=== PATIENT | female | born 1970 | race Caucasian/White ===

== ENCOUNTER → 2016-08-18 | Outpatient (CLI) | payer OTHER ==
--- NOTE | 2016-08-18 09:14 | CT ---
CT Pelvis, Bilateral Hips, and Bilateral Femurs Without Contrast With Multiplanar Reconstructions History: Left hip osteoarthritis with pain. M25.552. [facility] preop study. Comparison: Left hip x-ray February 2016. Technique: Noncontrast axial computed tomographic images of the pelvis and bilateral femurs with mult iplanar reconstructions. CT dose reduction techniques utilized. Findings: Severe osteoarthritis of the left hip with severe superior lateral joint space narrowing, s ubchondral sclerosis, osteophytes and cystic changes involving the acetabula, as well as the superior lateral femoral head region. Moderate osteoarthritis of the right hip with mild joint space narrowin g, acetabular sclerosis, and slight bone remodeling. Moderate bilateral facet arthropathy at L4-L5 and L5-S1. Sclerotic changes bilateral sacroiliac joint s, right worse than left. No evidence of sacral fractures. No destructive osseous lesions of the pelv ic bones. Sclerotic changes with osteophytes and cystic erosions also involving the symphysis pubis. No significant degenerative changes of the knees on the axial images, although there is lateral martinez lar tilt with medial subluxation of bilateral patellar apices. Minimal free fluid in the pelvis with calcified phleboliths in the pelvis. No significant pelvic or i nguinal adenopathy. Limited due to lack of contrast. Uterus is grossly unremarkable. Impression: 1. Severe osteoarthritis left hip. 2. Moderate osteoarthritis right hip. 3. Bilateral abnormal patellar tracking.
== END ==
LOC: FIMAGING 07:51
PROVIDERS: ATTEND Orthopaedic Surgery
DX: Z01.818 Encounter for other preprocedural examination (principal); M16.0 Bilateral primary osteoarthritis of hip; M22.91 Unspecified disorder of patella, right knee; M22.92 Unspecified disorder of patella, left knee

== ENCOUNTER 2016-10-25 06:01 | Inpatient (IN) | payer OTHER ==
[2016-10-05 12:36] LABS: % IMMATURE GRANULYOCYTES 0.4 % (0.0-1.1); ABSOLUTE IMMATURE GRANULOCYTES 0.02 10^3/uL (0.00-0.10); ADD DIFF? NO; ADD MORPH? NO; ADD SCAN? NO; ATYPICAL LYMPHOCYTE FLAG 0 (0-99); FRAGMENT RBC FLAG 0 (0-99); HEMATOCRIT 38.6 % (38.0-47.0); HEMOGLOBIN 13.2 g/dL (12.6-16.3); LEFT SHIFT FLG 0 (0-99); LIPEMIA HEMOLYSIS FLAG 90 (0-99); MEAN CELL HEMOGLOBIN 31.4 pg (27.9-34.1); MEAN CELL HEMOGLOBIN CONCENTR. 34.2 g/dL (32.4-36.7); MEAN CELL VOLUME 91.9 fL (81.5-99.8); MEAN PLATELET VOLUME 9.9 fL (8.7-11.7); PLATELET CLUMPS FLAG 0 (0-99); PLATELET COUNT 237 10^3/uL (150-400); RED CELL DISTRIBUTION WIDTH 12.4 % (11.5-15.2)
[2016-10-25] MEDS ORDERED: LIDOCAINE 1% 5 ML SDV ID PRN (06:10)
[2016-10-25] MEDS ORDERED: LR 1,000 ML IV ONE (06:10)
[2016-10-25] MEDS ORDERED: LIDOCAINE 1% 2 ML INJ ONE (06:20)
[2016-10-25] MEDS ORDERED: CITRATE DEXTROSE SOLN 500 ML BAG ONE (06:39)
[2016-10-25] MEDS ORDERED: ceFAZolin 1 GM/5 ML SYR ONE (06:39)
[2016-10-25] MEDS ORDERED: MIDAZOLAM 2 MG/2 ML VIAL ONE (06:56)
[2016-10-25] MEDS ORDERED: diphenhydrAMINE 25 MG CAP PO PRN (07:01)
[2016-10-25] MEDS ORDERED: POLYETHYLENE GLYCOL 3350 17 GM PKT PO PRN (07:01)
[2016-10-25] MEDS ORDERED: BISACODYL 10 MG SUPP PR PRN (07:01)
[2016-10-25] MEDS ORDERED: LACTULOSE 20 GM/30 ML UDCUP PO PRN (07:01)
[2016-10-25] MEDS ORDERED: TEMAZEPAM 15 MG CAP PO PRN (07:01)
[2016-10-25] MEDS ORDERED: DIAZEPAM 5 MG TAB PO PRN (07:01)
[2016-10-25] MEDS ORDERED: PHARMACY PAIN CONSULT 1 EA MISC PRN (07:01)
[2016-10-25] MEDS ORDERED: ONDANSETRON DISINTEGRATING 4 MG TAB PO PRN (07:01)
[2016-10-25] MEDS ORDERED: DIPHENOXYLATE/ATROPINE LOMOTIL 1 TAB PO PRN (07:01)
[2016-10-25] MEDS ORDERED: CYCLOBENZAPRINE 10 MG TAB PO PRN (07:01)
[2016-10-25] MEDS ORDERED: ONDANSETRON 4 MG/2 ML VIAL IVP PRN (07:01)
[2016-10-25] MEDS ORDERED: METOCLOPRAMIDE 10 MG/2 ML VIAL IVP PRN (07:01)
[2016-10-25] MEDS ORDERED: oxyCODONE IR 5 MG TAB PO PRN (07:01)
[2016-10-25] MEDS ORDERED: MAGNESIUM HYDROXIDE 30 ML UDCUP PO PRN (07:01)
[2016-10-25] MEDS ORDERED: PROMETHAZINE HCL 25 MG SUPPR PR PRN (07:01)
[2016-10-25] MEDS ORDERED: fentaNYL 100 MCG/2 ML INJ ONE (07:08)
[2016-10-25] MEDS ORDERED: PROPOFOL/EMULSION 500 MG/50 ML BOTTLE IV ONE (07:08)
[2016-10-25] MEDS ORDERED: LR 1,000 ML IV SCH (07:30)
[2016-10-25] MEDS ORDERED: ROPI/epiNEPH/KETOROLAC/morphINE JOINT COCKTAIL IU ONE (08:00)
[2016-10-25] MEDS ORDERED: CHLORHEXIDINE GLUC HIBICLENS 118 ML BTL TP ONE (08:00)
[2016-10-25] MEDS ORDERED: ACETAMINOPHEN 325 MG TAB PO ONE (08:00)
[2016-10-25] MEDS ORDERED: CEFAZOLIN 2 GM/DEXTR 100 ML IV ONE (08:00)
[2016-10-25] MEDS ORDERED: FAMOTIDINE 20 MG TAB PO ONE (08:00)
[2016-10-25] MEDS ORDERED: PHENYLEPHRINE HCL 100 MCG/ML SYR ONE (08:10)
[2016-10-25] MEDS ORDERED: PROPOFOL 200 MG/20 ML VIAL ONE (08:23)
[2016-10-25] MEDS ORDERED: ONDANSETRON 4 MG/2 ML VIAL ONE ×2 (09:02→09:36)
[2016-10-25] MEDS: MULTIVITAMINS 1 EACH TAB PO SCH (10:33)
[2016-10-25] MEDS: SENNOSIDES/DOCUSATE SODIUM TAB PO SCH ×2 (10:34→21:05)
[2016-10-25] MEDS: ACETAMINOPHEN 325 MG TAB PO SCH ×3 (13:24→23:15)
[2016-10-25] MEDS: ceFAZolin 2 GM/DEXTROSE 100 ML IV SCH ×2 (14:43→23:15)
[2016-10-25] MEDS: FAMOTIDINE 20 MG TAB PO SCH (21:05)
[2016-10-25] MEDS: ASPIRIN 325 MG TAB PO SCH (21:05)
[2016-10-26 05:13] LABS: HEMOGLOBIN 9.7 g/dL (12.6-16.3)
[2016-10-26] MEDS: ACETAMINOPHEN 325 MG TAB PO SCH ×2 (05:59→12:21)
--- NOTE | 2016-10-26 08:07 | PDIAF ---
- Diagnosis Diagnosis: left hip djd Code Status: Full Code - Medication Management Discharge Medications: Medications to Continue on Transfer Multivitamins [Multivitamin (*)] 1 each PO DAILY 09/29/16 [Last Taken 10/16/16] Aspirin [Aspirin 325 mg (*)] 325 mg PO DAILY #0 tab 10/26/16 [Last Taken Unknown ] Diazepam [Valium 5 MG (*)] 5 mg PO Q6HRS PRN #40 tab 10/26/16 [Last Taken Unknown] oxyCODONE IR [Oxycodone Ir (*)] 5 - 10 mg PO Q3HRS PRN #80 tab 10/26/16 [Last Taken Unknown] Discharge Medications: Refer to the Discharge Home Medication list for PRN reason. - Orders Services needed: Physical Therapy Diet Recommendation: no restrictions on diet Diet Texture: Regular Texture Diet Activity/Weight Bearing Restrictions: wbat. anterior hip precautions. daily dressing changes. no soaking. may shower without bandage. f/u at two weeks. seek attn for increasing pain, redness, or other focal complaint - Follow Up Care Current Providers and Referrals: Penny Cooney MD [Primary Care Provider] -
[2016-10-26] MEDS: SENNOSIDES/DOCUSATE SODIUM TAB PO SCH (08:41)
[2016-10-26] MEDS: MULTIVITAMINS 1 EACH TAB PO SCH (08:41)
[2016-10-26] MEDS: ASPIRIN 325 MG TAB PO SCH (08:41)
[2016-10-26] MEDS: FAMOTIDINE 20 MG TAB PO SCH (08:41)
[2016-10-26 08:59] VITALS: BP 99/65; RESP 15; TEMP 99.1
[2016-10-26 12:20] VITALS: PULSE 86; O2SAT 94
--- NOTE | 2016-10-28 14:14 | GDS ---
[f rep st] DISCHARGE SUMMARY ADMITTING DIAGNOSIS: Left hip degenerative joint disease. DISCHARGE DIAGNOSIS: Left hip degenerative joint disease. PROCEDURE PERFORMED: Left total hip arthroplasty. HISTORY OF PRESENT ILLNESS: The patient is a 46-year-old woman who has end-stage arthritis to her l eft hip. Clinical and radiographic features are consistent with this. She had failed all attempts at conservative management. I therefore recommended total hip replacement. She understood the risk s, benefits, alternatives, and wished to proceed. Written consent was signed and placed in patient' s chart. HOSPITAL COURSE: The patient was admitted to the hospital floor after uncomplicated total hip arthr oplasty. She tolerated the procedure well. Postoperatively, she had no significant complications. At the time of discharge, she was tolerating an oral diet. Her pain was well controlled on oral me dicines. She was voiding and stooling without difficulty. Dressing was clean, dry, and intact. Sh e had no calf swelling or tenderness. Incision was clean, dry, and intact. X-rays were stable with anatomic alignment and no fracture. DISCHARGE ACTIVITY: She is weightbearing as tolerated. Anterior hip precautions. Daily dressing c hanges. No soaking or immersion. May shower without the bandage. LUPILLO hose x2 weeks. DISCHARGE MEDICATIONS: Oxycodone 5 mg 1-2 every 6 hours p.r.n. pain, aspirin 325 mg p.o. daily for 6 weeks. Follow up in 2 weeks. /[id number]/MODL
--- NOTE | 2016-10-28 14:40 | GOP ---
[f rep st] OPERATIVE REPORT DATE OF OPERATION: 10/25/2016 SURGEON: Dylon Comer MD DIGITAL LEARNING PLATFORMS MANAGER: Nicolas Montanez, GEAR CUTTING MACHINE SET UP OPERATOR, SPECIALTY FOOD PRODUCTS SUPERVISOR, neurosurgical physician assistant, who was a medical necessity for the entir ety of the case. PREOPERATIVE DIAGNOSIS: Left hip degenerative joint disease. POSTOPERATIVE DIAGNOSIS: Left hip degenerative joint disease. PROCEDURE PERFORMED: Left total hip arthroplasty. FINDINGS: SPECIMENS: To pathology: The femoral head. INDICATIONS: The patient is a 46-year-old woman who has end-stage arthritis to her left hip. Clini roz and radiographic features are consistent with this. She has failed all attempts at conservative management. I have, therefore, recommended total hip replacement. She understood the risks, benef its, alternatives, and wished to proceed. Written consent was signed and placed in the patient's ch art. DESCRIPTION OF PROCEDURE: The patient was identified in the preanesthesia area. The left hip clear ly demarcated as the operative site with indelible marker. She was given 2 g of Ancef intravenously en route to the operative suite. In the OR, general endotracheal anesthesia was administered after a spinal block after she was positioned on the operative table in the supine position. All bony pr ominences were well padded. An appropriate time-out procedure was carried out. The pelvis and both lower extremities were sterilely prepped and draped in the usual fashion. Attention was first turn ed to the right hip and lower extremity. A 2 cm incision was made over the ASIS, and [address] aced into the pelvis. The MAKOplasty pelvis reference array was affixed in the usual fashion. Attention was then turned to the left hip. An anterior approach was made. This was carried sharply through the skin and subcutaneous tissue to the fascia overlying the tensor fascia michele. This was opened in the origin of its fibers. The tensor was swept laterally. The underlying vascular struct ures were ligated, , and cauterized. The rectus elevated off the anterior capsule, and a b dimitri Hohmann placed over the medial aspect of the neck and superior aspect of the neck. A T was mad e in the capsule, and the retractors were placed in an intracapsular position. A pelvic checkpoint was then fixed. A bony napkin ring wedge was removed from the femoral neck, and the head was remove d. The remnants of the soft tissue labrum were sharply excised. The bony line points were entered into the computer, and in a single stage reaming, a size 50 mm reamer was placed to the appropriate orientation and depth, using the robot assistance guide. A 50 mm outer diameter shell was then impa cted and confirmed to be fully seated. This was secure to direct interrogation. A 32-degree inner liner was then impacted and confirmed to be fully seated. Attention was then turned to the femur, which was delivered through the wound with the use of retrac tors, soft tissue releases, and extension of the table. The proximal canal was opened and broached to a size 2 stem. A trial reduction was carried out with a 32 mm, 0 mm neck length, and this allowe d full leg length zoroastrianism, full extension with external rotation of 90 degrees without instabili ty. The trial stem was withdrawn. A size 2, 127-degree neck angle hip stem was then impacted, conf irmed to be fully seated. A 32 mm +0 mm neck length Biolox head was then impacted across the [facility] ed trunnion. The hip was irrigated and hip reduced. A stability profile and leg lengths were equal , as before. The soft tissues were instilled with a joint cocktail of ropivacaine, morphine, Toradol, and epineph rine. A Hemovac drain was placed. The wound was closed in layers using 0 Vicryl, 2-0 Monocryl, and ikm, and sterile dressing was applied. The patient was awakened, extubated, and taken to recovery room in good, stable condition. TOTAL TOURNIQUET TIME: None. COMPLICATIONS: None. IMPLANTS: The [place] Tritanium acetabular shell, size 50 Trident X3 0-degree polyethylene insert s ize 32 mm inner diameter, the Biolox Delta ceramic head 32 mm +0 mm neck length, and Accolade II 127 -degree neck angle hip stem size 2. DISPOSITION: To the recovery room, then the floor. /[id number]/MODL
== END 2016-10-26 13:03 | disposition home or self-care (01) | DRG 470 ==
LOC: F3N 06:01
PROVIDERS: ADMIT Orthopaedic Surgery; ATTEND Orthopaedic Surgery
PROC: 0SRB04Z Replacement of Left Hip Joint with Ceramic on Polyethylene Synthetic Substitute, Open Approach (ICD-10-PCS; principal; 2016-10-25 07:15)
DX: M16.12 Unilateral primary osteoarthritis, left hip (principal)
CPT/HCPCS: 97110-GP; 97116-GP; 97161-GP; 97165-GO; 97530-GP; J0171; J0690; J1885; J2250; J2370; J2405; J2704; J2765; J2795; J3010; J7060

== ENCOUNTER → 2016-12-07 | Outpatient (CLI) | payer OTHER | LOC: BMCIMAGING 08:21 | PROVIDERS: ATTEND Physician Assistant | DX: Z47.89 Encounter for other orthopedic aftercare (principal); Z96.642 Presence of left artificial hip joint ==

== ENCOUNTER → 2017-01-12 | Outpatient (CLI) | payer OTHER | LOC: BMCIMAGING 08:32 | PROVIDERS: ATTEND Orthopaedic Surgery | DX: Z47.1 Aftercare following joint replacement surgery (principal); Z96.642 Presence of left artificial hip joint ==

== ENCOUNTER → 2017-04-20 | Outpatient (CLI) | payer OTHER | LOC: BMCIMAGING 08:42 | PROVIDERS: ATTEND Orthopaedic Surgery | DX: Z47.1 Aftercare following joint replacement surgery (principal); Z96.642 Presence of left artificial hip joint ==

== ENCOUNTER → 2017-10-19 | Outpatient (CLI) | payer OTHER | LOC: BMCIMAGING 08:17 | PROVIDERS: ATTEND Orthopaedic Surgery | DX: Z47.1 Aftercare following joint replacement surgery (principal); Z96.642 Presence of left artificial hip joint ==

== ENCOUNTER → 2017-11-25 | Outpatient (CLI) | payer OTHER | LOC: BMCIMAGING 10:48 | PROVIDERS: ATTEND Nurse Practitioner Women's Health | DX: N60.01 Solitary cyst of right breast (principal); R92.8 Other abnormal and inconclusive findings on diagnostic imaging of breast ==

== ENCOUNTER → 2018-07-21 | Outpatient (CLI) | payer OTHER | LOC: BMCIMAGING 10:13 | PROVIDERS: ATTEND Obstetrics & Gynecology | DX: N63.10 Unspecified lump in the right breast, unspecified quadrant (principal); N60.11 Diffuse cystic mastopathy of right breast ==